=== PATIENT | female | born 1970 | race Caucasian/White ===

== ENCOUNTER 2021-06-20 07:41 | Day surgery (SDC) | payer BC ==
[2021-06-19 16:19] LABS: ALBUMIN 3.8 G/DL (3.4-5.0); ANION GAP 11 (8-16); BASOPHILS % (AUTO) 0.3 % (0-1); BLOOD UREA NITROGEN 11 MG/DL (7-18); BUN/CREATININE RATIO 15.7 (6.6-38.0); CALCIUM 9.4 MG/DL (8.5-10.1); CHLORIDE 100 MMOL/L (99-107); EOSINOPHILS # (AUTO) 0.1 X10'3 (0-0.9); EOSINOPHILS % (AUTO) 1.6 % (0-6); GLUCOSE 106 MG/DL (70-104); HEMATOCRIT 42.6 % (35.0-45.0); HEMOGLOBIN 14.5 g/dl (12.0-16.0); LYMPHOCYTES # (AUTO) 1.3 X10'3 (1.1-4.8); LYMPHOCYTES % (AUTO) 20.1 % (21-51); MEAN CORPUSCULAR HEMOGLOBIN 32.3 PG (27.0-31.0); MEAN CORPUSCULAR VOLUME 94.9 FL (78-98); MEAN PLATELET VOLUME 8.7 FL (7.4-10.4); MONOCYTES # (AUTO) 0.5 X10'3 (0-0.9); MONOCYTES % (AUTO) 7.3 % (2-12); NEUTROPHILS # (AUTO) 4.6 X10'3 (1.8-7.7); NEUTROPHILS % (AUTO) 70.7 % (42-75); PLATELET COUNT 299 X10'3 (140-440); POTASSIUM 3.5 MMOL/L (3.5-5.1); RED BLOOD COUNT 4.49 X10'6 (4.20-5.60); RED CELL DISTRIBUTION WIDTH 15.5 % (11.5-14.5); SODIUM 143 MMOL/L (135-145); TOTAL CARBON DIOXIDE 31.7 MMOL/L (24-32); WHITE BLOOD COUNT 6.5 X10'3 (4.5-11.0); eGFR 88 ML/MIN
[2021-06-19 16:20] LABS: APTT 25 SECONDS (22-32)
[~2021-06-20] VITALS: Ht 157.5 cm; Wt 120.3 kg
[2021-06-20] VITALS (12 sets, daily range): BP systolic 119–153; BP diastolic 60–80
[2021-06-20] MEDS ORDERED: LORazepam 0.5 MG tablet PO PRN (08:10)
[2021-06-20] MEDS ORDERED: diphenhydrAMINE 25mg capsule PO PRN (08:10)
[2021-06-20] MEDS ORDERED: normal saline 1,000 ML IV SCH (08:10)
[2021-06-20] MEDS ORDERED: LIDOcaine/PRILOcaine 5gm cream TP ONE (08:35)
[2021-06-20] MEDS ORDERED: METH-806 PO (08:41)
[2021-06-20] MEDS ORDERED: FURO-150 PO (08:41)
[2021-06-20] MEDS ORDERED: BIOT5000 PO (08:41)
[2021-06-20] MEDS ORDERED: PREG150C46 PO (08:41)
[2021-06-20] MEDS ORDERED: OXYC15TA PO (08:41)
[2021-06-20] MEDS ORDERED: ASPI81TA52 PO (08:41)
[2021-06-20] MEDS ORDERED: DILT120C91 PO (08:41)
[2021-06-20] MEDS ORDERED: POTA8TAB69 PO (08:41)
[2021-06-20] MEDS ORDERED: verapamil 2.5 mg/ml inj IV ONE (09:17)
[2021-06-20] MEDS ORDERED: nitroGLYCERIN-Tridil 50MG/D5W 250 ML IV ONE (09:17)
[2021-06-20] MEDS ORDERED: iohexol 350MG/ML 100ml bottle IV ONE (09:18)
[2021-06-20] MEDS ORDERED: iohexol 350 MG/ML 50ML vial IV ONE (09:18)
[2021-06-20] MEDS ORDERED: LIDOcaine 1% (10mg/ml)w/preservative injection 20ml MDV ONE (09:18)
[2021-06-20] MEDS ORDERED: midazolam 1 mg/ML 2ml injection ONE (09:18)
[2021-06-20] MEDS ORDERED: fentaNYL/PF 50MCG/1 ML 2ML syringe ONE (09:18)
[2021-06-20] MEDS ORDERED: heparin 1,000unit/ml 10ml vial 10 ML ONE (09:18)
[2021-06-20] MEDS ORDERED: diphenhydrAMINE 50 mg/ml inj ONE (10:07)
[2021-06-20] MEDS ORDERED: HYDROmorphone 1 mg/ml syringe ONE (10:16)
[2021-06-20] MEDS ORDERED: normal saline 1000ml 1,000 ML IV SCH (11:25)
[2021-06-20] MEDS ORDERED: methadone 5mg tablet PO SCH (12:08)
[2021-06-20] MEDS ORDERED: oxyCODONE IR 5mg (immed. release) tablet PO PRN (12:10)
--- NOTE | 2021-06-20 12:30 | NUR ---
Pt c/o pain 5/10 to right radial site. Vasc band balloon deflated 2ml. Cap refill normal. Phoned and received orders to give pt home pain medications. Med rec faxed to pharmacy and phoned pharmacy to get medications.
--- NOTE | 2021-06-20 13:00 | NUR ---
Pt resting/sleeping calmly, VSS.
--- NOTE | 2021-06-20 14:00 | NUR ---
Pt c/o pain in Right arm is increasing again. Ice pack given also medicated with oxycodone.
--- NOTE | 2021-06-20 14:30 | NUR ---
DC instructions given to pt and sister Leah, questions answered and pt and sister verbalize understanding. Vasc band removed, no bleeding or hematoma noted. Pt with slight bruising to thumb and forearm area. Right wrist cleaned and dressing applied. PIV DC cath intact. VSS.
--- NOTE | 2021-06-20 15:00 | NUR ---
DC to home with all belongings with sister transferred to private car via WC, pt able to transfer self to car, gait steady.
[2021-06-21] MEDS ORDERED: pregabalin 75mg capsule PO SCH (08:00)
[2021-06-21] MEDS ORDERED: furosemide 20MG tablet PO SCH (08:00)
[2021-06-21] MEDS ORDERED: diltiazem CD 120mg capsule (once-daily) PO SCH (08:00)
[2021-06-21] MEDS ORDERED: aspirin 81mg, enteric-coated 1 TAB TABLET.DR PO SCH (08:00)
[2021-06-21] MEDS ORDERED: POTASSIUM CHLORIDE 20 MEQ/15 ML oral solution PO SCH (08:00)
[2021-06-25 05:59] LABS: ISTAT HGB ART 14.3 g/dl (12.0-16.0); ISTAT Hct ART 42 %PCV (35-48); ISTAT O2 SATURATION ARTERIAL 98 % (95-98); ISTAT SOURCE BLNK
[2021-06-25 05:59] LABS: ISTAT Hct MIX 42 %PCV (35-48); ISTAT O2 SATURATION MIX VENOUS 80 % (60-80); ISTAT SOURCE BLNK
== END 2021-06-20 15:00 | disposition home or self-care (01) ==
LOC: SSTAY O 07:41
PROVIDERS: ATTEND Internal Medicine Cardiovascular Disease
DX: R94.31 Abnormal electrocardiogram [ECG] [EKG] (principal); R53.83 Other fatigue; R06.02 Shortness of breath; I25.10 Atherosclerotic heart disease of native coronary artery without angina pectoris; I48.0 Paroxysmal atrial fibrillation; I11.0 Hypertensive heart disease with heart failure; I50.30 Unspecified diastolic (congestive) heart failure; I27.20 Pulmonary hypertension, unspecified; E55.9 Vitamin D deficiency, unspecified; E87.6 Hypokalemia; F41.9 Anxiety disorder, unspecified; F32.A Depression, unspecified; I34.0 Nonrheumatic mitral (valve) insufficiency; E66.9 Obesity, unspecified; Z68.42 Body mass index [BMI] 45.0-49.9, adult; Z88.5 Allergy status to narcotic agent; Z88.8 Allergy status to other drugs, medicaments and biological substances; Z90.49 Acquired absence of other specified parts of digestive tract; Z98.890 Other specified postprocedural states; Z82.49 Family history of ischemic heart disease and other diseases of the circulatory system; Z83.6 Family history of other diseases of the respiratory system
CPT/HCPCS: 36415; 76937; 80048; 85025; 85610; 85730; 93005; 93460; 99152; 99153; C1751; C1769; C1894; J1170; J1200; J1644; J2250; J3010; J3490; J7030; Q0163; Q9967; 82803; 85014; A4620; A5120